=== PATIENT | female | born 1985 | race American Indian/Alaskan Native ===

== ENCOUNTER 2017-05-29 04:57 | Emergency (ER) | payer SELFPAY ==
[2017-05-29 05:07] VITALS: BP 121/91
[2017-05-29] MEDS ORDERED: FUL-GLO OP ONE (05:12)
[2017-05-29] MEDS ORDERED: TETRACAINE 0.5% OU ONE (05:13)
[2017-05-29] MEDS ORDERED: TETRACAINE 0.5% ONE (05:15)
--- NOTE | 2017-05-29 05:36 | Emergency Department Report ---
Eye Injury/Foreign Body - HPI Duration: 1 Day Eye Location: Left Severity: Mild Tetanus Status: Up to Date Eye Symptoms: Eye Pain: Yes, Blurred Vision: No, Eye Redness: Yes, Grinding/ Hammering Metal: No, Used Eye Protection: No, Contact Lens Use: No, Recalls Injury: No, Photophobia: No Other History: Patient is a 31-year-old female presents to ED complaining of eye pain and irritation times one day. Patient states she was out of the salon getting her eyebrows done when he gets sick got some glue in her eye. Patient said she got up immediately and started to flush her left eye. Patient states that since then it spread a little irritated and red. She states that her vision is intact with no blurred vision ED Review of Systems ROS: Stated complaint: COUGH, EYE PAIN Other details as noted in HPI Constitutional: denies: chills, fever Eyes: denies: eye pain, eye discharge, vision change ENT: denies: ear pain, throat pain Respiratory: denies: cough, shortness of breath, wheezing Cardiovascular: denies: chest pain, palpitations Endocrine: no symptoms reported Gastrointestinal: denies: abdominal pain, nausea, diarrhea Genitourinary: denies: urgency, dysuria, discharge Musculoskeletal: denies: back pain, joint swelling, arthralgia Skin: denies: rash, lesions Neurological: denies: headache, weakness, paresthesias Psychiatric: denies: anxiety, depression Hematological/Lymphatic: denies: easy bleeding, easy bruising ED Past Medical Hx - Past Medical History Previous Medical History?: No - Surgical History Additional Surgical History: C section - Social History Smoking Status: Current Every Day Smoker Substance Use Type: None - Medications Home Medications: Home Medications Medication Instructions Recorded Confirmed Last Taken Type ALBUTEROL Inhaler [ProAir HFA 2 puff IH QID PRN #1 inhalation 02/27/15 Unknown Rx Inhaler] Azithromycin [Zithromax Z-LESLI] 250 mg PO DAILY #6 tab 02/27/15 Unknown Rx Pseudoephed/Cod/Guaifen 5 ml PO Q8H #1 bottle 02/27/15 Unknown Rx [Robitussin DAC 10-100-30Mg/5Ml] Acetaminophen/Codeine [Tylenol #3] 1 tab PO Q6H PRN #10 tab 02/28/15 Unknown Rx Cyclobenzaprine [Flexeril 10 MG 10 mg PO TID PRN #12 tablet 02/28/15 Unknown Rx TAB] Ibuprofen [Motrin 800 MG tab] 800 mg PO Q8HR PRN #30 tablet 02/28/15 Unknown Rx Acetaminophen/Codeine [Tylenol #3] 1 tab PO Q6H PRN #20 tab 03/21/15 Unknown Rx Penicillin Vk [Veetids TAB] 500 mg PO TID #30 tablet 03/21/15 Unknown Rx Benzonatate [Tessalon Perles] 100 mg PO Q8HR #20 capsule 05/29/17 Unknown Rx Ofloxacin [Ocuflox 0.3%] 1 - 2 drop OP Q6HR #5 ml 05/29/17 Unknown Rx Sod Borate/Boric AC/Water/NaCl 20 ml OP BID #1 irrig.soln 05/29/17 Unknown Rx [Eye Wash Solution] Eye Injury Exam - Exam General: Vital signs noted. No distress. Alert and acting appropriately. - Visual Acuity Left Vision Acuity Degree: 20/50 Eye Exam: Left Injection, Left EOMI, Neither Chemosis, Neither Abnormal Pupil, Neither Eye Foreign Body, Neither Lid Foreign Body, Neither Mucous Discharge, Neither Purulent Discharge, Neither Fluorescein Uptake Exam: No orbital periorbital swelling, nontender to palpation. No dischargein the eyes bilaterally Right Vision Acuity Degree: 20/70 Bilateral Vision Acuity Degree: 20/50 ED Course Vital Signs 05/29/17 05:02 Temperature 98.1 F Pulse Rate 86 Respiratory 16 Rate Blood Pressure 121/91 O2 Sat by Pulse 99 Oximetry ED Medical Decision Making - Medical Decision Making 31-year-old female presents with left eye irritation ED cours left eye was flushed thoroughly, visual acuity normal, vision is intact. Eye exam shows no fluorescein uptake, coronary abrasion or foreign objects in a eye I explained and discussed this with the patient. I discussed the patient follow up with her primary care physician I discussed the patient and given her some antibiotic prophylaxis to prevent infection. I discussed the patient if vision worsens or new symptoms arise to return to ED immediately Vision is intact bilaterally Critical care attestation.: If time is entered above; I have spent that time in minutes in the direct care of this critically ill patient, excluding procedure time. ED Disposition Clinical Impression: Eye irritation Conjunctivitis Qualifiers: Conjunctivitis type: acute Acute conjunctivitis type: atopic Laterality: left Qualified Code(s): H10.12 - Acute atopic conjunctivitis, left eye Disposition: DC- TO HOME OR SELFCARE Is pt being admited?: No Does the pt Need Aspirin: No Condition: Stable Instructions: Conjunctivitis (ED), Chronic Bronchitis (ED), Eye Pain (ED) Additional Instructions: Make sure to follow up with the primary care physician as discussed. Use your medications as you've been prescribed. Q Flushing eyes twice a day as discussed If you have any worsening symptoms or develop new symptoms please return to ED immediately. Prescriptions: Benzonatate [Tessalon Perles] 100 mg PO Q8HR #20 capsule Ofloxacin [Ocuflox 0.3%] 1 - 2 drop OP Q6HR #5 ml Sod Borate/Boric AC/Water/NaCl [Eye Wash Solution] 20 ml OP BID #1 irrig.soln Referrals: [facility] [Outside] - 3-5 Days [facility] [Outside] - 3-5 Days [facility] [Outside] - 3-5 Days Forms: Work/School Release Form(ED) Time of Disposition: 05:50
== END 2017-05-29 06:26 | disposition home or self-care (01) ==
LOC: ED 04:57
DX: H10.12 Acute atopic conjunctivitis, left eye (principal); F17.200 Nicotine dependence, unspecified, uncomplicated
CPT/HCPCS: 99283

== ENCOUNTER 2018-09-12 09:57 | Emergency (ER) | payer OTHER ==
[2018-09-12 10:18] VITALS: BP 122/73
--- NOTE | 2018-09-12 12:39 | Emergency Department Report ---
ED Female HPI - General Chief complaint: Urogenital-Female Stated complaint: VAGINAL ITCHING/STOMACH PAIN Time Seen by Provider: 09/12/18 12:34 Source: patient Mode of arrival: Ambulatory Limitations: No Limitations - History of Present Illness Initial comments: Patient is 32 years old female with no significant past medical history. Patient presented to the ER complaining of itchy vaginal discharge whitish color for the last 3 days. Patient denies any fever or vaginal bleeding. No other symptoms. MD Complaint: vaginal discharge - Related Data Previous Rx's Medication Instructions Recorded Last Taken Type ALBUTEROL Inhaler (OR & NICU) 2 puff IH QID PRN #1 inhalation 02/27/15 Unknown Rx [ProAir HFA Inhaler] Azithromycin [Zithromax Z-LESLI] 250 mg PO DAILY #6 tab 02/27/15 Unknown Rx Pseudoephed/Cod/Guaifen 5 ml PO Q8H #1 bottle 02/27/15 Unknown Rx [Robitussin DAC 10-100-30Mg/5Ml] Acetaminophen/Codeine [Tylenol #3] 1 tab PO Q6H PRN #10 tab 02/28/15 Unknown Rx Cyclobenzaprine [Flexeril 10 MG 10 mg PO TID PRN #12 tablet 02/28/15 Unknown Rx TAB] Ibuprofen [Motrin 800 MG tab] 800 mg PO Q8HR PRN #30 tablet 02/28/15 Unknown Rx Acetaminophen/Codeine [Tylenol #3] 1 tab PO Q6H PRN #20 tab 03/21/15 Unknown Rx Penicillin Vk [Veetids TAB] 500 mg PO TID #30 tablet 03/21/15 Unknown Rx Benzonatate [Tessalon Perles] 100 mg PO Q8HR #20 capsule 05/29/17 Unknown Rx Ofloxacin [Ocuflox 0.3%] 1 - 2 drop OP Q6HR #5 ml 05/29/17 Unknown Rx Sod Borate/Boric AC/Water/NaCl 20 ml OP BID #1 irrig.soln 05/29/17 Unknown Rx [Eye Wash Solution] Allergies Allergy/AdvReac Type Severity Reaction Status Date / Time No Known Allergies Allergy Verified 02/28/15 09:49 ED Review of Systems ROS: Stated complaint: VAGINAL ITCHING/STOMACH PAIN Other details as noted in HPI Comment: All other systems reviewed and negative Constitutional: denies: chills, fever Respiratory: denies: cough Cardiovascular: denies: chest pain Gastrointestinal: denies: abdominal pain, nausea, vomiting Neurological: denies: headache ED Past Medical Hx - Past Medical History Previous Medical History?: No - Surgical History Past Surgical History?: Yes Additional Surgical History: C section - Social History Smoking Status: Current Every Day Smoker Substance Use Type: None - Medications Home Medications: Home Medications Medication Instructions Recorded Confirmed Last Taken Type ALBUTEROL Inhaler (OR & NICU) 2 puff IH QID PRN #1 inhalation 02/27/15 Unknown Rx [ProAir HFA Inhaler] Azithromycin [Zithromax Z-LESLI] 250 mg PO DAILY #6 tab 02/27/15 Unknown Rx Pseudoephed/Cod/Guaifen 5 ml PO Q8H #1 bottle 02/27/15 Unknown Rx [Robitussin DAC 10-100-30Mg/5Ml] Acetaminophen/Codeine [Tylenol #3] 1 tab PO Q6H PRN #10 tab 02/28/15 Unknown Rx Cyclobenzaprine [Flexeril 10 MG 10 mg PO TID PRN #12 tablet 02/28/15 Unknown Rx TAB] Ibuprofen [Motrin 800 MG tab] 800 mg PO Q8HR PRN #30 tablet 02/28/15 Unknown Rx Acetaminophen/Codeine [Tylenol #3] 1 tab PO Q6H PRN #20 tab 03/21/15 Unknown Rx Penicillin Vk [Veetids TAB] 500 mg PO TID #30 tablet 03/21/15 Unknown Rx Benzonatate [Tessalon Perles] 100 mg PO Q8HR #20 capsule 05/29/17 Unknown Rx Ofloxacin [Ocuflox 0.3%] 1 - 2 drop OP Q6HR #5 ml 05/29/17 Unknown Rx Sod Borate/Boric AC/Water/NaCl 20 ml OP BID #1 irrig.soln 05/29/17 Unknown Rx [Eye Wash Solution] ED Physical Exam - General Limitations: No Limitations General appearance: alert, in no apparent distress - Head Head exam: Present: atraumatic, normocephalic, normal inspection - Eye Eye exam: Present: normal appearance, PERRL - ENT ENT exam: Present: normal exam, normal orophraynx, mucous membranes moist - Neck Neck exam: Present: normal inspection, full ROM. Absent: tenderness, meningis mus - Respiratory Respiratory exam: Present: normal lung sounds bilaterally - Cardiovascular Cardiovascular Exam: Present: regular rate, normal rhythm, normal heart sounds - GI/Abdominal GI/Abdominal exam: Present: soft, normal bowel sounds. Absent: distended, tenderness, guarding, rebound, rigid - Extremities Exam Extremities exam: Present: normal inspection, full ROM, normal capillary refill. Absent: tenderness, pedal edema, joint swelling, calf tenderness - Back Exam Back exam: Present: normal inspection, full ROM - Neurological Exam Neurological exam: Present: alert, oriented X3, CN II-XII intact - Skin Skin exam: Present: warm, normal color ED Course Vital Signs 09/12/18 10:14 Temperature 98.3 F Pulse Rate 88 Respiratory 16 Rate Blood Pressure 122/73 O2 Sat by Pulse 99 Oximetry ED Medical Decision Making - Medical Decision Making Patient is 32 years old female with no significant past medical history. Patient presented to the ER complaining of itchy vaginal discharge whitish color for the last 3 days. Patient denies any fever or vaginal bleeding. No other symptoms. Critical care attestation.: If time is entered above; I have spent that time in minutes in the direct care of this critically ill patient, excluding procedure time. ED Disposition Clinical Impression: Vaginal candidiasis Disposition: DC-01 TO HOME OR SELFCARE Is pt being admited?: No Condition: Stable Instructions: Vulvovaginal Candidiasis (ED) Referrals: MARK NOWAK MD [Primary Care Provider] - 3-5 Days
[2018-09-12 14:59] LABS: Bacteria,Urine 1+ /HPF (Negative); Bilirubin,Urine NEG (Negative); Blood,Urine NEG (Negative); Color,Urine Yellow (Yellow); Mucus,Urine 3+ /HPF; Protein,Urine <15 mg/dL mg/dL (Negative)
[2018-09-12 15:03] LABS: HCG Qualitative,Urine Negative (Negative)
== END 2018-09-12 15:51 | disposition home or self-care (01) ==
LOC: ED 09:57
DX: B37.3 Candidiasis of vulva and vagina (principal); F17.200 Nicotine dependence, unspecified, uncomplicated; Z79.899 Other long term (current) drug therapy
CPT/HCPCS: 81001; 81025; 87086; 99283

== ENCOUNTER 2019-01-26 01:11 | Emergency (ER) | payer SELFPAY ==
[2019-01-26 01:28] VITALS: BP 131/80
[2019-01-26] MEDS ORDERED: ASPIRIN 325 MG TAB PO ONE (01:44)
[2019-01-26] MEDS ORDERED: IBUPROFEN 800 MG TAB PO ONE (02:25)
[2019-01-26 02:31] LABS: Basophils % (Auto) 0.6 % (0.0-1.8); Eosinophils # (Auto) 0.2 K/mm3 (0.0-0.4); Eosinophils % (Auto) 4.6 % (0.0-4.3); Hematocrit 36.5 % (30.3-42.9); Hemoglobin 12.3 gm/dl (10.1-14.3); Lymphocytes # (Auto) 1.6 K/mm3 (1.2-5.4); Lymphocytes % (Auto) 44.1 % (13.4-35.0); Mean Corpuscular HGB Conc 34 % (30-34); Mean Corpuscular Volume 92 fl (79-97); Monocytes # (Auto) 0.4 K/mm3 (0.0-0.8); Monocytes % (Auto) 11.8 % (0.0-7.3); Platelet Count 197 K/mm3 (140-440); Red Blood Count 3.96 M/mm3 (3.65-5.03); Red Cell Distribution Width 13.3 % (13.2-15.2)
[2019-01-26 02:52] LABS: BUN/Creatinine Ratio 23; Blood Urea Nitrogen 16 mg/dL (7-17); Calcium 9.2 mg/dL (8.4-10.2); Hemolysis Index 20
--- NOTE | 2019-01-26 03:16 | Emergency Department Report ---
ED Chest Pain HPI - General Chief Complaint: Chest Pain Stated Complaint: SOB, HEADACHE Time Seen by Provider: 01/26/19 02:08 Source: patient Mode of arrival: Ambulatory Limitations: No Limitations - History of Present Illness Initial Comments: 33-year-old female withPast medical history presents to the hospital complaining of left upper chest pain that started while at work about 9 PM. Patient states she had been lifting heavy boxes of ketchup at work today. Chin have intermittent upper left chest pain described as pulling occurring for about 15 seconds at a time prior to going away. She states she had mild shortness of breath as symptom onset but none since. She also complains of a frontal headache. She denies blurred vision, nausea, vomiting, focal weakness, focal numbness, control/hormone therapy, history of PE/DVT, calf tenderness, leg edema, recent travel, or hemoptysis. Severity scale (0 -10): 5 - Related Data Previous Rx's Medication Instructions Recorded Last Taken Type ALBUTEROL Inhaler (OR & NICU) 2 puff IH QID PRN #1 inhalation 02/27/15 Unknown Rx [ProAir HFA Inhaler] Azithromycin [Zithromax Z-LESLI] 250 mg PO DAILY #6 tab 02/27/15 Unknown Rx Pseudoephed/Cod/Guaifen 5 ml PO Q8H #1 bottle 02/27/15 Unknown Rx [Robitussin DAC 10-100-30Mg/5Ml] Acetaminophen/Codeine [Tylenol #3] 1 tab PO Q6H PRN #10 tab 02/28/15 Unknown Rx Cyclobenzaprine [Flexeril 10 MG 10 mg PO TID PRN #12 tablet 02/28/15 Unknown Rx TAB] Acetaminophen/Codeine [Tylenol #3] 1 tab PO Q6H PRN #20 tab 03/21/15 Unknown Rx Penicillin Vk [Veetids TAB] 500 mg PO TID #30 tablet 03/21/15 Unknown Rx Benzonatate [Tessalon Perles] 100 mg PO Q8HR #20 capsule 05/29/17 Unknown Rx Ofloxacin [Ocuflox 0.3%] 1 - 2 drop OP Q6HR #5 ml 05/29/17 Unknown Rx Sod Borate/Boric AC/Water/NaCl 20 ml OP BID #1 irrig.soln 03/03/18 Unknown Rx [Eye Wash Solution] Fluconazole [Diflucan TAB] 150 mg PO ONCE #1 tablet 09/12/18 Unknown Rx Ibuprofen [Motrin 800 MG tab] 800 mg PO Q8HR PRN #30 tablet 01/26/19 Unknown Rx Allergies Allergy/AdvReac Type Severity Reaction Status Date / Time No Known Allergies Allergy Verified 02/28/15 09:49 Heart Score - HEART Score History: Slightly suspicious EKG: Normal Age: < 45 Risk factors: 1-2 risk factors Troponin: < normal limit HEART Score: 1 ED Review of Systems ROS: Stated complaint: SOB, HEADACHE Other details as noted in HPI Comment: All other systems reviewed and negative ED Past Medical Hx - Past Medical History Previous Medical History?: No - Surgical History Past Surgical History?: Yes Additional Surgical History: C section - Social History Smoking Status: Current Every Day Smoker Substance Use Type: None - Medications Home Medications: Home Medications Medication Instructions Recorded Confirmed Last Taken Type ALBUTEROL Inhaler (OR & NICU) 2 puff IH QID PRN #1 inhalation 02/27/15 Unknown Rx [ProAir HFA Inhaler] Azithromycin [Zithromax Z-LESLI] 250 mg PO DAILY #6 tab 02/27/15 Unknown Rx Pseudoephed/Cod/Guaifen 5 ml PO Q8H #1 bottle 02/27/15 Unknown Rx [Robitussin DAC 10-100-30Mg/5Ml] Acetaminophen/Codeine [Tylenol #3] 1 tab PO Q6H PRN #10 tab 02/28/15 Unknown Rx Cyclobenzaprine [Flexeril 10 MG 10 mg PO TID PRN #12 tablet 02/28/15 Unknown Rx TAB] Acetaminophen/Codeine [Tylenol #3] 1 tab PO Q6H PRN #20 tab 03/21/15 Unknown Rx Penicillin Vk [Veetids TAB] 500 mg PO TID #30 tablet 03/21/15 Unknown Rx Benzonatate [Tessalon Perles] 100 mg PO Q8HR #20 capsule 05/29/17 Unknown Rx Ofloxacin [Ocuflox 0.3%] 1 - 2 drop OP Q6HR #5 ml 05/29/17 Unknown Rx Sod Borate/Boric AC/Water/NaCl 20 ml OP BID #1 irrig.soln 05/29/17 Unknown Rx [Eye Wash Solution] Fluconazole [Diflucan TAB] 150 mg PO ONCE #1 tablet 09/12/18 Unknown Rx Ibuprofen [Motrin 800 MG tab] 800 mg PO Q8HR PRN #30 tablet 01/26/19 Unknown Rx ED Physical Exam - General Limitations: No Limitations - Other Other exam information: General: No acute distress Head: Atraumatic Eyes: normal appearance ENT: Moist mucous membranes Neck: Normal appearance, no midline tenderness, no nuchal rigidity Chest: Clear to auscultation bilaterally, reproducible left upper chest wall tenderness CV: Regular rate and rhythm Abdomen: Soft, normal bowel sounds, nontender, nondistended, no rebound or guarding Back: Normal inspection Extremity: Normal inspection infection, full range of motion, no calf tenderness or leg edema Neuro: Alert O x 3, no facial asymmetry, speech clear, no gross motor sensory deficit Psych: Appropriate behavior Skin: No rash ED Course Vital Signs 01/26/19 01/26/19 01/26/19 01:26 01:28 03:25 Temperature 98.5 F Pulse Rate 85 Respiratory 12 Rate Blood Pressure 131/80 O2 Sat by Pulse 82 L 99 Oximetry PRASAD score - Prasad Score Age > 65: (0) No Aspirin use within the Past 7 Days: (0) No 3 or more CAD Risk Factors: (0) No 2 or more Angina events in past 24 hrs: (0) No Known CAD with more than 50% Stenosis: (0) No Elevated Cardiac Markers: (0) No ST Deviation Greater than 0.5mm: (0) No PRASAD Score: 0 ED Medical Decision Making - Lab Data Result diagrams: 01/26/19 02:04 01/26/19 02:04 Lab Results 01/26/19 01/26/19 01/26/19 Range/Units 02:04 02:04 02:04 WBC 3.7 L (4.5-11.0) K/mm3 RBC 3.96 (3.65-5.03) M/mm3 Hgb 12.3 (10.1-14.3) gm/dl Hct 36.5 (30.3-42.9) % MCV 92 (79-97) fl MCH 31 (28-32) pg MCHC 34 (30-34) % RDW 13.3 (13.2-15.2) % Plt Count 197 (140-440) K/mm3 Lymph % (Auto) 44.1 H (13.4-35.0) % [place] % (Auto) 11.8 H (0.0-7.3) % Eos % (Auto) 4.6 H (0.0-4.3) % Baso % (Auto) 0.6 (0.0-1.8) % Lymph # 1.6 (1.2-5.4) K/mm3 [place] # 0.4 (0.0-0.8) K/mm3 Eos # 0.2 (0.0-0.4) K/mm3 Baso # 0.0 (0.0-0.1) K/mm3 Seg Neutrophils % 38.9 L (40.0-70.0) % Seg Neutrophils # 1.4 L (1.8-7.7) K/mm3 Sodium 140 (137-145) mmol/L Potassium 4.3 (3.6-5.0) mmol/L Chloride 105.6 (98-107) mmol/L Carbon Dioxide 24 (22-30) mmol/L Anion Gap 15 mmol/L BUN 16 (7-17) mg/dL Creatinine 0.7 (0.7-1.2) mg/dL Estimated GFR > 60 ml/min BUN/Creatinine Ratio 23 % Glucose 83 (65-100) mg/dL Calcium 9.2 (8.4-10.2) mg/dL Troponin T < 0.010 (0.00-0.029) ng/mL HCG, Qual Negative (Negative) - EKG Data -: EKG Interpreted by Ct EKG shows normal: sinus rhythm, ST-T waves (no stemi) Rate: normal - EKG Data When compared to previous EKG there are: previous EKG unavailable - Radiology Data Radiology results: report reviewed (cxr: naf) - Medical Decision Making Chest the perc PE score of 0 Patient also has a low heart and PRASAD score with normal EKG and initial negative troponin Patient treated with Motrin and will be sent home with muscular skeletal pain. pt sat is 99% on room air (not 82%) - Differential Diagnosis costochondritis, pectoralis muscle strain, NV, PE Critical Care Time: No Critical care attestation.: If time is entered above; I have spent that time in minutes in the direct care of this critically ill patient, excluding procedure time. ED Disposition Clinical Impression: Chest wall muscle strain Disposition: DC- TO HOME OR SELFCARE Is pt being admited?: No Does the pt Need Aspirin: No Condition: Stable Instructions: Thoracic Pain (ED) Additional Instructions: Take the medication as prescribed. Follow-up with your doctor or doctor/clinic provided. Return if symptoms worsen as indicated by your discharge instructions. Prescriptions: Ibuprofen [Motrin 800 MG tab] 800 mg PO Q8HR PRN #30 tablet PRN Reason: Pain Referrals: PRIMARY MD LIYAH [Primary Care Provider] - 3-5 Days [facility] [Provider Group] - 3-5 Days ROMINA BHATTI MD [Staff Physician] - 3-5 Days Time of Disposition: 04:12
--- NOTE | 2019-01-26 04:09 | XRay Report ---
CHEST 2 VIEWS 0310 INDICATION / CLINICAL INFORMATION: cp COMPARISON: 02/26/2015 FINDINGS: SUPPORT DEVICES: None. HEART / MEDIASTINUM: No significant abnormality. LUNGS / PLEURA: No significant pulmonary or pleural abnormality. No pneumothorax. ADDITIONAL FINDINGS: No significant additional findings. IMPRESSION: No significant acute abnormality Signer Name: Rai Mota MD Signed: 01/26/2019 4:04 AM Workstation Name: [id number]
== END 2019-01-26 04:41 | disposition home or self-care (01) ==
LOC: ED 01:11
DX: S29.011A Strain of muscle and tendon of front wall of thorax, initial encounter (principal); X58.XXXA Exposure to other specified factors, initial encounter; Y93.89 Activity, other specified; Y92.89 Other specified places as the place of occurrence of the external cause; Y99.8 Other external cause status; F17.200 Nicotine dependence, unspecified, uncomplicated
CPT/HCPCS: 36415; 71046; 80048; 84484; 84703; 85025; 93005; 93010

== ENCOUNTER 2019-03-11 05:33 | Emergency (ER) | payer SELFPAY ==
--- NOTE | 2019-03-11 06:35 | XRay Report ---
CHEST 2 VIEWS INDICATION / CLINICAL INFORMATION: cough. COMPARISON: 01/26/2019 FINDINGS: SUPPORT DEVICES: None. HEART / MEDIASTINUM: No significant abnormality. LUNGS / PLEURA: No significant pulmonary or pleural abnormality. No pneumothorax. ADDITIONAL FINDINGS: No significant additional findings. IMPRESSION: 1. No acute findings. Signer Name: Kennedy Patrick MD Signed: 03/11/2019 6:30 AM Workstation Name: [id number]
--- NOTE | 2019-03-11 07:49 | Emergency Department Report ---
- General Chief Complaint: Upper Respiratory Infection Stated Complaint: FLU LIKE SX Time Seen by Provider: 03/11/19 07:37 Source: patient Mode of arrival: Ambulatory Limitations: No Limitations - History of Present Illness Initial Comments: Patient is a 33-year-old female who presents emergency room with complaints of URI symptoms that began yesterday. she has associated cough, body aches, congestion, fever, nausea. She denies any rhinorrhea, sore throat, ear pain. She denies any known sick contacts. She denies any past medical history or allergies medications. She states her last menstrual cycle was 02/21/2019. - Related Data Previous Rx's Medication Instructions Recorded Last Taken Type ALBUTEROL Inhaler (OR & NICU) 2 puff IH QID PRN #1 inhalation 02/27/15 Unknown Rx [ProAir HFA Inhaler] Azithromycin [Zithromax Z-LESLI] 250 mg PO DAILY #6 tab 02/27/15 Unknown Rx Pseudoephed/Cod/Guaifen 5 ml PO Q8H #1 bottle 02/27/15 Unknown Rx [Robitussin DAC 10-100-30Mg/5Ml] Acetaminophen/Codeine [Tylenol #3] 1 tab PO Q6H PRN #10 tab 02/28/15 Unknown Rx Cyclobenzaprine [Flexeril 10 MG 10 mg PO TID PRN #12 tablet 02/28/15 Unknown Rx TAB] Acetaminophen/Codeine [Tylenol #3] 1 tab PO Q6H PRN #20 tab 03/21/15 Unknown Rx Penicillin Vk [Veetids TAB] 500 mg PO TID #30 tablet 03/21/15 Unknown Rx Benzonatate [Tessalon Perles] 100 mg PO Q8HR #20 capsule 05/29/17 Unknown Rx Ofloxacin [Ocuflox 0.3%] 1 - 2 drop OP Q6HR #5 ml 05/29/17 Unknown Rx Sod Borate/Boric AC/Water/NaCl 20 ml OP BID #1 irrig.soln 05/29/17 Unknown Rx [Eye Wash Solution] Fluconazole [Diflucan TAB] 150 mg PO ONCE #1 tablet 09/12/18 Unknown Rx Ibuprofen [Motrin 800 MG tab] 800 mg PO Q8HR PRN #30 tablet 01/26/19 Unknown Rx Oseltamivir [Tamiflu] 75 mg PO BID 5 Days #10 cap 03/11/19 Unknown Rx Allergies Allergy/AdvReac Type Severity Reaction Status Date / Time No Known Allergies Allergy Verified 02/28/15 09:49 ED Review of Systems ROS: Stated complaint: FLU LIKE SX Other details as noted in HPI Comment: All other systems reviewed and negative ED Past Medical Hx - Past Medical History Previous Medical History?: No - Surgical History Past Surgical History?: Yes Additional Surgical History: C section - Social History Smoking Status: Current Every Day Smoker Substance Use Type: None - Medications Home Medications: Home Medications Medication Instructions Recorded Confirmed Last Taken Type ALBUTEROL Inhaler (OR & NICU) 2 puff IH QID PRN #1 inhalation 02/27/15 Unknown Rx [ProAir HFA Inhaler] Azithromycin [Zithromax Z-LESLI] 250 mg PO DAILY #6 tab 02/27/15 Unknown Rx Pseudoephed/Cod/Guaifen 5 ml PO Q8H #1 bottle 02/27/15 Unknown Rx [Robitussin DAC 10-100-30Mg/5Ml] Acetaminophen/Codeine [Tylenol #3] 1 tab PO Q6H PRN #10 tab 02/28/15 Unknown Rx Cyclobenzaprine [Flexeril 10 MG 10 mg PO TID PRN #12 tablet 02/28/15 Unknown Rx TAB] Acetaminophen/Codeine [Tylenol #3] 1 tab PO Q6H PRN #20 tab 03/21/15 Unknown Rx Penicillin Vk [Veetids TAB] 500 mg PO TID #30 tablet 03/21/15 Unknown Rx Benzonatate [Tessalon Perles] 100 mg PO Q8HR #20 capsule 05/29/17 Unknown Rx Ofloxacin [Ocuflox 0.3%] 1 - 2 drop OP Q6HR #5 ml 05/29/17 Unknown Rx Sod Borate/Boric AC/Water/NaCl 20 ml OP BID #1 irrig.soln 05/29/17 Unknown Rx [Eye Wash Solution] Fluconazole [Diflucan TAB] 150 mg PO ONCE #1 tablet 09/12/18 Unknown Rx Ibuprofen [Motrin 800 MG tab] 800 mg PO Q8HR PRN #30 tablet 01/26/19 Unknown Rx Oseltamivir [Tamiflu] 75 mg PO BID 5 Days #10 cap 03/11/19 Unknown Rx ED Physical Exam - General Limitations: No Limitations General appearance: alert, in no apparent distress - Head Head exam: Present: atraumatic, normocephalic - Eye Eye exam: Present: normal appearance - ENT ENT exam: Present: normal orophraynx, mucous membranes moist, TM's normal bilaterally, normal external ear exam - Respiratory Respiratory exam: Present: normal lung sounds bilaterally. Absent: respiratory distress, wheezes, rales, rhonchi, stridor, chest wall tenderness, accessory muscle use, decreased breath sounds, prolonged expiratory - Cardiovascular Cardiovascular Exam: Present: regular rate, normal rhythm, normal heart sounds. Absent: systolic murmur, diastolic murmur, rubs, gallop - Neurological Exam Neurological exam: Present: alert, oriented X3 - Psychiatric Psychiatric exam: Present: normal affect, normal mood - Skin Skin exam: Present: warm, dry, intact ED Course Vital Signs 03/11/19 03/11/19 05:40 08:10 Temperature 100.2 F H 100.1 F H Pulse Rate 102 H 98 H Respiratory 20 18 Rate Blood Pressure 119/74 Blood Pressure 127/70 [Right] O2 Sat by Pulse 99 99 Oximetry ED Medical Decision Making - Radiology Data Radiology results: report reviewed CHEST 2 VIEWS INDICATION / CLINICAL INFORMATION: cough. COMPARISON: 01/26/2019 FINDINGS: SUPPORT DEVICES: None. HEART / MEDIASTINUM: No significant abnormality. LUNGS / PLEURA: No significant pulmonary or pleural abnormality. No pneumothorax. ADDITIONAL FINDINGS: No significant additional findings. IMPRESSION: 1. No acute findings. Signer Name: Kennedy Patrick MD Signed: 03/11/2019 6:30 AM Workstation Name: [id number] Transcribed By: Dictated By: Kennedy Patrick MD Electronically Authenticated By: Kennedy Patrick MD Signed Date/Time: 03/11/19 0630 - Medical Decision Making Patient is a 33-year-old female who presents emergency room with complaints of URI symptoms that began yesterday. she has associated cough, body aches, congestion, fever, nausea. She denies any rhinorrhea, sore throat, ear pain. She denies any known sick contacts. She denies any past medical history or allergies medications. She states her last menstrual cycle was 02/21/2019. Vitals with mild low-grade temp and mild tachycardia, pt given tylenol. Normal oropharynx, normal TMs and canals, normal breath sounds bilaterally without wheezing, rales, rhonchi. Chest x-ray with no acute process. Patient has signs and symptoms most consistent with influenza virus will treat patient with Hillary flu. Discussed supportive care and symptomatic treatment with patient. Advised patient to take medication as prescribed. Increase your fluid intake over the next several days. May take Tylenol or ibuprofen for a temperature of 100.4 or greater. May take jpku-irf-pzxgxzj cough medication. May use a humidifier. May do warm saltwater gargles, eat warm soup broth, drink warm tea. Follow-up with a primary care doctor in the next 2-3 days. Return to the emergency room for any new or worsening symptoms. - Differential Diagnosis URI, otitis, pharyngitis, PNA, influenza, viral syndrome Critical care attestation.: If time is entered above; I have spent that time in minutes in the direct care of this critically ill patient, excluding procedure time. ED Disposition Clinical Impression: Influenza Disposition: DC-01 TO HOME OR SELFCARE Is pt being admited?: No Does the pt Need Aspirin: No Condition: Stable Instructions: Influenza (ED) Additional Instructions: Advised patient to take medication as prescribed. Increase your fluid intake over the next several days. May take Tylenol or ibuprofen for a temperature of 100.4 or greater. May take rqmj-agb-hzquwet cough medication. May use a humidifier. May do warm saltwater gargles, eat warm soup broth, drink warm tea. Follow-up with a primary care doctor in the next 2-3 days. Return to the emergency room for any new or worsening symptoms. Prescriptions: Oseltamivir [Tamiflu] 75 mg PO BID 5 Days #10 cap Referrals: VERNON SAUNDERS MD [Staff Physician] - 2-3 Days [facility] [Outside] - 2-3 Days Forms: Work/School Release Form(ED) Time of Disposition: 07:49 Print Language: MONGOLIAN
[2019-03-11] MEDS ORDERED: ACETAMINOPHEN 325 MG TAB PO ONE (08:00)
[2019-03-11] MEDS ORDERED: ACETAMINOPHEN 325 MG TAB ONE (08:05)
[2019-03-11 08:56] VITALS: BP 127/70
== END 2019-03-11 08:10 | disposition home or self-care (01) ==
LOC: ED 05:33
DX: J11.1 Influenza due to unidentified influenza virus with other respiratory manifestations (principal); F17.200 Nicotine dependence, unspecified, uncomplicated; Z79.899 Other long term (current) drug therapy
CPT/HCPCS: 71046

== ENCOUNTER 2020-12-31 17:36 | Emergency (ER) | payer SELFPAY ==
[2020-12-31 17:41] VITALS: BP 137/84
[2020-12-31] MEDS ORDERED: IBUPROFEN 600 MG TAB PO ONE (18:11)
[2020-12-31] MEDS ORDERED: ACETAMINOPHEN 500 MG TAB PO ONE (18:11)
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
== END 2020-12-31 20:40 | disposition home or self-care (01) ==
LOC: ED 17:36
DX: S63.591A Other specified sprain of right wrist, initial encounter (principal); S66.811A Strain of other specified muscles, fascia and tendons at wrist and hand level, right hand, initial encounter; S00.83XA Contusion of other part of head, initial encounter; S10.93XA Contusion of unspecified part of neck, initial encounter; M62.830 Muscle spasm of back; M54.50 Low back pain, unspecified; M54.6 Pain in thoracic spine; F17.200 Nicotine dependence, unspecified, uncomplicated; Z98.890 Other specified postprocedural states; Z79.899 Other long term (current) drug therapy; Y04.8XXA Assault by other bodily force, initial encounter; Y93.89 Activity, other specified; Y92.89 Other specified places as the place of occurrence of the external cause; Y99.8 Other external cause status
CPT/HCPCS: 70486; 72070; 72100; 99284

== ENCOUNTER 2021-01-04 11:05 | Emergency (ER) | payer SELFPAY ==
[2021-01-04 11:16] VITALS: BP 144/89
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
== END 2021-01-04 12:07 | disposition home or self-care (01) ==
LOC: ED 11:05
DX: K04.7 Periapical abscess without sinus (principal); F17.200 Nicotine dependence, unspecified, uncomplicated
CPT/HCPCS: 99281